=== PATIENT | female | born 1960 | race Caucasian/White ===

== ENCOUNTER 2016-08-24 21:02 | Emergency (ER) | payer OTHER ==
[~2016-08-24] VITALS: Ht 160 cm; Wt 64.0 kg
[2016-08-24 21:27] VITALS: Ht 160 cm; Wt 64.0 kg
--- NOTE | 2016-08-24 23:57 | ERD ---
ER Documentation Chief Complaint Date/Time DATE: 08/24/16 TIME: 23:55 Chief Complaint cough x 3 days HPI This is a 56-year-old female presents to the emergency room for evaluation of a fever and cough for the past 3 days. She also states she has nasal congestion. She has not taken any medicine for this. She is concerned because she was diagnosed with pneumonia last year when she had similar symptoms. She states she also has some chills, but denies any nausea vomiting diarrhea or chest pain ROS All systems reviewed and are negative except as per history of present illness. Allergies Allergies: Coded Allergies: No Known Allergy (Unverified , 08/24/16) Physical Exam Vitals Vital Signs Date Time Temp Pulse Resp B/P Pulse Ox O2 Delivery O2 Flow Rate FiO2 08/24/16 21:27 99.9 80 20 118/66 97 Physical Exam Const: No acute distress Head: Atraumatic Eyes: Normal Conjunctiva ENT: Bilateral nasal congestion normal External Ears, Nose and Mouth. Neck: Full range of motion..~ No meningismus. Resp: Coarse breath sounds bilaterally Cardio: Regular rate and rhythm, no murmurs Abd: Soft, non tender, non distended. Normal bowel sounds Skin: No petechiae or rashes Back: No midline or flank tenderness Ext: No cyanosis, or edema Neur: Awake and alert Psych: Normal Mood and Affect Results 24 hrs Current Medications Medications (Trade) Dose Ordered Sig/Hayley Route PRN Reason Start Time Stop Time Status Last Admin Dose Admin Guaifenesin/ Dextromethorphan (Robitussin Dm Liquid Cup) 10 ml ONCE ONCE PO 08/25/16 00:00 08/25/16 00:01 Procedures/MDM Chest X-ray 1V Interpreted by me: Soft Tissue: No acute abnormalities Bones: No acute abnormalities Mediastinum/Cardiac Silhouette/Lungs: [No acute abnormalities] This [age]-year-old female presents to the emergency room for evaluation of a cough and nasal congestion and chills for the past 3 days. This patient did have coarse breath sounds on my examination. A chest x-ray does not reveal any acute infiltrates, however given this patient's age, previous diagnosis of pneumonia with similar complaints this patient will be discharged home with a prescription for azithromycin at this time. I advised her sometimes early pneumonia will not show up on x-ray. Other differential could be acute bronchitis. My suspicion for PE or ACS is low at this time as this patient is not tachycardic or hypoxic. She is not hypoxic, and is okay with her plan of care. She was advised to follow-up with her primary care physician in office and she verbalized understanding. Departure Diagnosis: Primary Impression: Cough Additional Impression: Acute bronchitis Condition: Stable JYOTI ROSE DO Aug 24, 2016 23:57
[2016-08-24] MEDS ORDERED: AZIT250T94 PO (23:58)
[2016-08-25] MEDS ORDERED: GUAIFENESIN/DM 5ML CUP PO ONE
--- NOTE | 2016-08-25 01:04 | RADRPT ---
PROCEDURE: Portable chest x-ray. CLINICAL INDICATION: Cough. TECHNIQUE: Portable AP view of the chest. COMPARISON: None. FINDINGS: No pulmonary edema or conolidation is identified. The cardiac silhouette is magnified. No pleural effusion is seen. There is no pneumothorax. IMPRESSION: 1. No evidence of acute cardiopulmonary disease. RPTAT: HTAR .Martinez Serrano MD, MD Date Time Electronically viewed and signed by .Martinez Serrano MD, on 08/25/2016 01:04 .R/
== END 2016-08-25 00:10 | disposition home or self-care (01) ==
LOC: E/R 21:02
DX: R05 Cough (principal); J20.9 Acute bronchitis, unspecified
CPT/HCPCS: 71010; Z7610

== ENCOUNTER 2018-02-12 18:22 | Emergency (ER) | END 2018-02-12 22:30 | disposition home or self-care (01) ==